=== PATIENT | female | born 1995 | race Caucasian/White ===

== ENCOUNTER 2024-12-21 14:52 | Outpatient (AMB) | payer OTHER, SELFPAY ==
--- NOTE | 2024-12-21 15:50 | MHC.PC.OV ---
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 boulardii)) 250 mg PO BID Tobacco use date assessed: 12/21/24 Dental Screening Dental Screen Date: 12/21/24 Did you have a dental visit in the last 12 months?: Yes Did you have a dental problem in the last 6 months where you did not have access to dental care?: No Was dental information given to patient?: No HPI BUILDING CONTRACTOR-PE HPI Details New Patient? ?? Prior PCP:? [facility]. Last office visit/CPE:? CPE Jun 2024 Acute issue(s):? Est care Recent illness URI and had a Z-virgilio. PMHx:? RA dx'd w/ + RF. Dr Maldonado, [place] Miscarriages. AntiPhospholipid ab positive w/o clinical clotting disorder. Daily Aspirin, Has STAFF TECHNOLOGIST & MFM as well. TMJ. SurgHx:? D& C in march after miscarriage. Adhesions s/p D&C and had Lysis of adhesions. FHx:? Dad: HTN, HLD. Mom: Fibromyalgia. mGM: Breast CA. mAunt: Breast CA. SocHx: Nonsmoker. EtOH: None. No drugs HPI Comments History of Present Illness Details Documentation assistance for Carlos Enrique Fernandez MD, was provided by Maxi Rollins,? Brazing Machine Tender on 12/21/2024 at 4:23 PM EST. I, Dr. Fernandez, have read, observed, and verified documentation. ?? PFSH Medical History (Updated 12/21/24 @ 16:40 by Maxi Rollins) Arthritis Asthma Surgical History (Updated 12/21/24 @ 16:01 by CATY Dickens) History of hysteroscopy H/O dilation and curettage Family History (Updated 12/21/24 @ 16:04 by CATY Dickens) Father High blood cholesterol High blood pressure Paternal Grandfather Diabetes Maternal Grandmother No problems noted. Maternal Grandfather Prostate cancer Cardiovascular disease Social History Housing: House Patient Tobacco Use Status: Never used Tobacco e-Cigarette/Vaping Use: Never Used Second Hand Smoke Exposure: No Patient : No service: No Current occupational status: employed Current occupation: RN Current occupational exposures/hazards: Yes Cognitive needs: No Hearing needs: No Vision needs: No Questionnaire PHQ-9 Over the last 2 weeks, how often have you been bothered by any of the following problems? 1. Little interest or pleasure in doing things: not at all 2. Feeling down, depressed, or hopeless: not at all 3. Trouble falling or staying asleep, or sleeping too much: not at all 4. Feeling tired or having little energy: not at all 5. Poor appetite or overeating: not at all 6. Feeling bad about yourself - or that you are a failure or have let yourself or your family down: not at all 7. Trouble concentrating on things, such as reading the newspaper or watching television: not at all 8. Moving or speaking so slowly that other people could have noticed. Or the opposite - being so fidgety or restless that you have been moving around a lot more than usual: not at all 9. Thoughts that you would be better off or of hurting yourself in some way: not at all Total score: 0 Depression Screening Interpretation: Negative Depression Screening Done: Yes 86431 - PHQ-9 Billing: Yes Source: Developed by Drs. Lamont Romeo, Courtney Bagley, Pradeep Cedeno and colleagues, with an educational sav from [employer]. Thrive Questionnaire Date Thrive assessed: 12/21/24 I am a: Patient What is your living situation today?: I have a steady place to live Within the past 12 months, did the food you bought not last and you didn't have the money to get more?: Never true Within the past 12 months, did you worry whether your food would run out before you got money to buy more?: Never true Do you have trouble paying for medicines?: No Do you have trouble getting transportation to medical appointments?: No Do you have trouble paying your heating and electricity bill?: No Do you have trouble taking care of your child, family member or friend?: No Do you have trouble with day-to-day activities such as bathing, preparing meals, shopping, managing finances, etc.?: No Are you currently unemployed and looking for a job?: No Are you interested in more education?: No Please select the resources that you would like help with: None Currently or been in a relationship where the following occur: No concerns reported THRIVE Score: 0 AUDIT C Alcohol Use Questionnaire (AUDIT-C) 1. How often do you have a drink containing alcohol?: Never 3. How often do you have six or more drinks on one occasion?: Never Total Score: 0 Score Reviewed/Action Taken: No ANN-7 AMB Questionnaire ANN-7 Date ANN - 7 assessed: 12/21/24 Feeling nervous, anxious, or on edge: 0 = Not at all Not being able to stop or control worryin = Not at all Worrying too much about different things: 0 = Not at all Trouble relaxin = Not at all Being so restless that it is hard to sit still: 0 = Not at all Becoming easily annoyed or irritable: 0 = Not at all Feeling afraid as if something awful might happen: 0 = Not at all Total ANN-7 score (0-4 normal; 5-9 mild; 10-14 moderate; 15-21 severe): 0 Source: Developed by Drs. Lamont Romeo, Courtney Bagley, Pradeep Cedeno and colleagues, with an educational sav from [employer]. ANN-7 Assessment Billing ANN-7 Assessment Tool: ANN-7 Assessment 49178 ACT Questionnaire In the past 4 weeks, how much of the time did your asthma keep you from getting as much done at work, school or at home?: A little of the time During the past 4 weeks, how often have you had shortness of breath?: Not at all During the past 4 weeks, how often did your asthma symptoms wake you up at night or earlier than usual in the morning?: Not at all During the past 4 weeks, how often have you had to use your rescue inhaler or nebulizer medication?: More than 3 times per day How would you rate your asthma control during the past 4 weeks?: Well controlled Score: 19 Physical exam (Primary Care) Vital Signs: Last Vital Signs Temp 98.3 F 12/21/24 16:07 Pulse 80 12/21/24 16:07 Resp 14 12/21/24 16:07 BP 98/60 12/21/24 16:07 Pulse Ox 98 12/21/24 16:07 Oxygen Delivery Method Room Air 12/21/24 16:07 BMI result Body Mass Index 26.3 Tobacco/Smoking Status: Tobacco use Status Tobacco use date assessed 12/21/24 12/21/24 16:08 Patient Tobacco Use Status Never used Tobacco 12/21/24 16:08 e-Cigarette/Vaping Use Never Used 12/21/24 16:08 PHQ-9: PHQ-9 Score PHQ-9: Total score 0 12/21/24 16:08 Depression Screening Interpretation: Negative Thrive Assessment: Date of Thrive Assessment Date Thrive assessed 12/21/24 12/21/24 16:08 Currently or been in a relationship where the following occur: No concerns reported Coding Level of Care Code New Pt Level 3 (54565) Diagnoses URI (upper respiratory infection) J06.9 Rheumatoid arthritis M06.9 Antiphospholipid antibody syndrome D68.61 TMJ (dislocation of temporomandibular joint) S03.00XA Laboratory exam ordered as part of routine general medical examination Z00.00 Additional Codes ANN-7 Assessment Billing - ANN-7 Assessment Tool: ANN-7 Assessment 94839 ([id number]) PHQ-9 - 12964 - PHQ-9 Billing: Yes ([id number]) Assessment & Plan Assessment & Plan (1) URI (upper respiratory infection): Code(s): J06.9 - Acute upper respiratory infection, unspecified Category: Medical Plan: Mildly?coarse?breath?sounds?but?otherwise?clear?s/p?Z-Virgilio. Call?or?return?to?office?if?worsens Mild?cough?should?continue?to?improve?and?results (2) Rheumatoid arthritis: Code(s): M06.9 - Rheumatoid arthritis, unspecified Category: Medical Plan: Patient?notes?seropositive?rheumatoid Stable Follow-up?with?rheumatology?as?recommended (3) Antiphospholipid antibody syndrome: Code(s): D68.61 - Antiphospholipid syndrome Category: Medical Plan: Multiple?miscarriages?his?potentially?secondary?to?her?antiphospholipid?antibody?positive?state?though?she?has?not?had?any?other?clotting?disorders. She?continues?aspirin (4) TMJ (dislocation of temporomandibular joint): Code(s): S03.00XA - Dislocation of jaw, unspecified side, initial encounter Category: Medical Plan: Stabel (5) Laboratory exam ordered as part of routine general medical examination: Code(s): Z00.00 - Encounter for general adult medical examination without abnormal findings Category: Medical Plan: Check Labs Orders: Orders Complete Blood Count Auto Diff Today Z00.00 - Encounter for general adult medical examination without abnormal findings TSH reflex Free T4 Today Z00.00 - Encounter for general adult medical examination without abnormal findings Comprehensive [place]. Panel Fast Today Z00.00 - Encounter for general adult medical examination without abnormal findings Lipid Panel Today Z00.00 - Encounter for general adult medical examination without abnormal findings Microalbumin, Random (w Creat) Today I10 - Essential (primary) hypertension UA and rflx microscopic Today Z00.00 - Encounter for general adult medical examination without abnormal findings
[2024-12-21 16:07] VITALS: BP 98/60; PULSE 80; RESP 14; TEMP 36.8; O2SAT 98; BMI 26.3
--- OUTSIDE RECORDS SUMMARY | 2024-12-21 18:13 | XMS_ITS | Patient Health Record ---
[facility] Organization [facility] [place] Address [address] [place] [address] Care Team Providers Care S Iron Worker Name Role Phone Ellen Youssef MD Primary Care Provider Gera Ferrer Unavailable [phone] Allergies No Known Allergies Reason For Referral No Information Medications Medication SIG (Take, Route, Fr equency, Duration) Notes Start Date End Date Status Omeprazole 20 MG 1 capsule 30 minutes before morning meal Orally Once a day for 30 day(s) Active Enbrel 50 MG/ML 1 ml Subcutaneous for 30 day(s) Active Immunizations Vaccine Route Administration Date Status Comme nts COVID-19 Pfizer BioNTech Vaccine Unknown 10/20/2020 Administered 1st 09/29/2020 Influenza Unknown 08/08/2021 Administered Social History Tobacco Use: Social History Observation Description Date Details (start date - stop date) Never Smoker NA - NA Tobacco Use/Smoking Question Answer Notes Are you a: nonsmoker Additional Findings: Tobacco Non-User Current no n-smoker Alcohol Screen Question Answer Notes Did you have a drink contain ing alcohol in the past year? Yes How often did you have a dri nk containing alcohol in the past year? Monthly or less (1 point) How often did you have 6 or more drinks on one occasion in the past year? Monthly (2 points) Points 3 Interpretation Positive Tobacco use other than smoking: Question Answer Notes Are you an other tobacco user? No Problems Problem Type SNOMED Code ICD Code Onset Dates Problem Status W/U Status Risk Notes Problem Plantar wart (19396700) Plantar wart (B07.0) Active confirmed Plan Of Treatment Pending Test Test Name Order Date [id number] Destruction, 1-02/27/2022 Insurance Providers Payer Name Payer Address Payer Phone Subscriber Number Group Number Insured Name Patient Relationship to Insured Coverage Start Date Coverage End Date [facility] [address] [facility] [place] [address] [id number] Will Portillo Parent Medical (General) History Medical History History ICD Code Arthritis - Rheumatoid Reflux ( GERD) Surgical History Surgery Date(Month/Year)
== END 2024-12-21 16:43 | disposition home or self-care (01) ==
LOC: HO.HMCFM 14:54
PROVIDERS: PCP Family Medicine; Visit Provider Family Medicine
DX: J06.9 Acute upper respiratory infection, unspecified (principal); M06.9 Rheumatoid arthritis, unspecified; D68.61 Antiphospholipid syndrome; S03.00XA Dislocation of jaw, unspecified side, initial encounter; Z00.00 Encounter for general adult medical examination without abnormal findings

== ENCOUNTER → 2024-12-21 14:52 | Outpatient (BNVA) | payer OTHER, SELFPAY | PROVIDERS: PCP Family Medicine; Visit Provider Family Medicine | DX: Z00.00 Encounter for general adult medical examination without abnormal findings (principal); J06.9 Acute upper respiratory infection, unspecified; M06.9 Rheumatoid arthritis, unspecified; D68.61 Antiphospholipid syndrome; S03.00XA Dislocation of jaw, unspecified side, initial encounter; J45.909 Unspecified asthma, uncomplicated; Z79.82 Long term (current) use of aspirin; X58.XXXA Exposure to other specified factors, initial encounter; Y93.9 Activity, unspecified; Y92.9 Unspecified place or not applicable; Y99.9 Unspecified external cause status | CPT/HCPCS: 96127; 96160 ==

== ENCOUNTER 2025-02-02 08:42 | Outpatient (REF) | payer OTHER, SELFPAY ==
[2025-02-02 11:43] LABS: MANUAL DIFF FLAG NO
[2025-02-02 11:51] LABS: Basophils Percent Auto 0.9 % (0-2); Eosinophils Absolute Auto 0.2 X10*3/uL (0.0-0.4); Eosinophils Percent Auto 4.7 % (0-4); Hematocrit 38.4 % (37.0-47.0); Hemoglobin 12.9 g/dl (12.0-16.0); Imm Gran Abs Auto 0.01 X10*3/uL (0.00-0.03); Imm Gran Pct Auto 0.2 % (0.0-0.4); Lymphocytes Percent Auto 43.5 % (20-40); Mean Corpuscular HGB Conc 33.6 g/dl (31.0-35.0); Mean Corpuscular Hemoglobin 30.6 pg (27.0-33.0); Mean Corpuscular Volume 91.2 fL (80.0-98.0); Mean Platelet Volume 10.2 fL (9.4-12.3); Monocytes Absolute Auto 0.4 X10*3/uL (0.1-1.2); Monocytes Percent Auto 7.8 % (2-11); Neutrophils Percent Auto 42.9 % (45-73); Platelet Count 257 X10*3/uL (160-400); Red Blood Count 4.21 X10*6/uL (4.20-5.50); Red Cell Distribution Width 12.2 % (11.0-16.0); White Blood Count 4.6 X10*3/uL (4.8-10.8)
[2025-02-02 11:55] LABS: Appearance Urine Clear; Color Urine Yellow; Glucose Urine UA Negative (Negative); Leukocyte Esterase Urine Small (1+) (Negative); Nitrite Urine Negative (Negative); PH 7.5 (5.0-9.0); Specific Gravity - Urine 1.015 (1.005-1.025); UMIC TRIGGER UA YES; Urine Blood Negative (Negative); Urine Ketones Negative (Negative); Urine Protein Negative (Neg-Trace)
[2025-02-02 12:09] LABS: Bacteria Urine 1+ (None Seen); Hyaline Casts Urine 0-2 /LPF (0-2); RBC Urine 0-2 /HPF (0-2); WBC Urine 0-5 /HPF (0-5)
[2025-02-02 12:21] LABS: Alanine Aminotransferase 24 U/L (0-31); Albumin Level 4.2 g/dL (3.5-5.0); Alkaline Phosphatase 59 U/L (39-117); Anion Gap 8 (12-20); Aspartate Amino Transferase 41 U/L (5-31); Bilirubin Total 1.8 mg/dL (0.0-1.0); Blood Urea Nitrogen 11 mg/dL (9-16); Calcium 9.4 mg/dL (8.4-10.2); Carbon Dioxide 27 mmol/L (22-29); Chloride 106 mmol/L (96-108); Cholesterol 174 mg/dL (<200); Estimated Glomerular Filt Rate > 60; Glucose Fasting 89 mg/dL (60-99); HDL Cholesterol 47 mg/dL (>40); LDL Cholesterol Calculated 117 mg/dL (<100); Potassium 4.4 mmol/L (3.3-5.1); Sodium 137 mmol/L (135-145); Total Protein 7.5 g/dL (6.5-8.0); Triglycerides 53 mg/dL (<150)
[2025-02-02 12:26] LABS: TSH reflex Free T4 1.01 uIU/mL (0.32-4.0)
[2025-02-02 12:33] LABS: Creatinine Urine 111.04 mg/dL; Microalbumin Urine < 5.0 mg/L
== END 2025-02-02 08:43 | disposition home or self-care (01) ==
LOC: HO.WFDLDS 08:42
PROVIDERS: Visit Provider Family Medicine
DX: Z00.00 Encounter for general adult medical examination without abnormal findings (principal); I10 Essential (primary) hypertension
CPT/HCPCS: 36415; 80053; 80061; 81001; 82043; 82570; 84443; 85025